=== PATIENT | female | born 1975 | race Caucasian/White ===

== ENCOUNTER 2017-11-08 12:33 | Emergency (ER) | payer SELFPAY ==
[~2017-11-08] VITALS: Ht 165.1 cm; Wt 53.5 kg
[~2017-11-08 12:33] MED LIST: ALBU0.086 NEB; BENZ100 PO; MEDR4PAK3 PO
[2017-11-08 12:48] VITALS: BP 130/82; PULSE 86; RESP 16; TEMP 98.2; O2SAT 96
--- NOTE | 2017-11-08 13:10 | PD ---
HPI Chief Complaint: Injury Time Seen by Provider: 12:54 Travel History International Travel<30 days: No Contact w/Intl Traveler<30days: No Traveled to known affect area: No History of Present Illness HPI 42-year-old female presents emergency department with injury to the dorsal right hand. Patient states she was swinging her hand and hit a doorknob , which she had sudden onset pain, swelling, and bruising to the dorsal hand. This happened 2 days ago. She continues to have swelling, ecchymosis, and pain. Pain is worse with movement and palpation. Pain is about an 8 out of 10. She has been taking ibuprofen and keeping it wrapped with an Gideon bandage. Patient is concerned about possible fracture. She works at the local [employer]. She has no other complaints. She has no known drug allergies. PFSH Past Medical History Asthma: No (BRONCHITIS) Diminished Hearing: No Respiratory: Yes (CHRONIC BRONCHITIS) ?: Not LMP: 2015 : 10 Para: 2 : 7 Social History Alcohol Use: Yes (2-3 BEERS A DAY) Tobacco Use: Yes (1 PACK A DAY FOR 10 YEARS) Substance Use: Yes ("WEED"DAILY) Allergies-Medications (Allergen,Severity, Reaction): Coded Allergies: No Known Allergies (Verified , 05/05/16) Reported Meds & Prescriptions Reported Meds & Active Scripts Active Review of Systems Except as stated in HPI: all other systems reviewed are Neg General / Constitutional: No: Fever Eyes: No: Visual changes HENT: No: Headaches Cardiovascular: No: Chest Pain or Discomfort Respiratory: No: Shortness of Breath Gastrointestinal: No: Abdominal Pain Genitourinary: No: Dysuria Musculoskeletal: Positive: Arthralgias, Limited ROM, Pain, Other (Swelling and ecchymosis per) Skin: No Rash Neurologic: No: Weakness Psychiatric: No: Depression Endocrine: No: Polydipsia Hematologic/Lymphatic: No: Easy Bruising Physical Exam Narrative GENERAL: Patient appears in mild distress per SKIN: Warm and dry. Normal color. Normal turgor. Patient has old ecchymosis to the dorsal right hand extending up to the proximal right wrist. There is a particular swollen area over the dorsal webspace between the second and third metacarpal bones. There is no open wounds or abrasions. There is no sign of cellulitis. HEAD: Atraumatic. Normocephalic. EYES: Pupils equal and round. No scleral icterus. No injection or drainage. ENT: No nasal bleeding or discharge. Mucous membranes pink and moist. Pharynx is clear. Airways patent. NECK: Trachea midline. Supple and nontender CARDIOVASCULAR: Regular rate and rhythm. RESPIRATORY: No accessory muscle use. Clear to auscultation. Breath sounds equal bilaterally. GASTROINTESTINAL: Abdomen soft, non-tender, nondistended. Hepatic and splenic margins not palpable. MUSCULOSKELETAL: Extremities without clubbing, cyanosis, or edema. No obvious deformities. Range of motion of the right hand is limited secondary to pain. Strength is intact but limited secondary to pain. Wrist is normal. NEUROLOGICAL: Awake and alert. No obvious cranial nerve deficits. Motor grossly within normal limits. Five out of 5 muscle strength in the arms and legs. Normal speech. PSYCHIATRIC: Appropriate mood and affect; insight and judgment normal. Data Data Last Documented VS Vital Signs Date Time Temp Pulse Resp B/P (MAP) Pulse Ox O2 Delivery O2 Flow Rate FiO2 11/08/17 12:48 98.2 86 16 130/82 (98) 96 Orders Orders Hand, Complete ([id number]) (11/08/17 12:55) Ice/Cold Pack (11/08/17 12:55) MDM Medical Decision Making Medical Screen Exam Complete: Yes Emergency Medical Condition: Yes Differential Diagnosis Right hand contusion. Ecchymosis. Possible fracture. Narrative Course X-ray of the right hand is obtained. X-ray shows no acute fracture or dislocation. Patient is placed in an Gideon wrap. She is to use heat followed by ice and take ibuprofen 600 mg 4 times daily #40 Work note is given. Patient to follow-up if symptoms do not improve or worsen as needed. Diagnosis Primary Impression: Contusion of right hand, initial encounter Patient Instructions: General Instructions Departure Forms: Work Release Enter return to work date: Nov 09, 2017 Special Instructions: Limited use of the right hand for 1 week. Additional Instructions: X-ray shows no acute fracture or dislocation. Patient is placed in an Gideon wrap. She is to use heat followed by ice and take ibuprofen 600 mg 4 times daily #40 Work note is given. Patient to follow-up if symptoms do not improve or worsen as needed. Med/Other Pt SpecificInfo: Prescription(s) given Disposition: 01 DISCHARGE HOME Condition: Stable Lucy,Pierre F. PA Nov 08, 2017 13:09
--- NOTE | 2017-11-08 13:11 | RADRPT ---
EXAM DATE/TIME: 11/08/2017 13:04 [facility] COMPARISON: No previous studies available for comparison. INDICATIONS : Right hand pain, hit on door handle MEDICAL HISTORY : None. SURGICAL HISTORY : None. ENCOUNTER: Initial ACUITY: 3 days PAIN SCORE: 8/10 LOCATION: Right Hand FINDINGS: Three view examination of the right hand demonstrates no soft tissue swelling, dislocation, or fractu re. The carpal bones appear intact. The interphalangeal and metacarpophalangeal joints are intact. Bony mineralization is normal. CONCLUSION: Unremarkable examination of the right hand. Valeriy Leon MD on November 08, 2017 at 13:08 Board Certified Radiologist. This report was verified electronically.
[2017-11-08] MEDS ORDERED: IBUP-232 PO (13:44)
== END 2017-11-08 14:04 | disposition home or self-care (01) ==
LOC: NEPD 12:33
DX: S60.221A Contusion of right hand, initial encounter (principal); F17.200 Nicotine dependence, unspecified, uncomplicated; W22.8XXA Striking against or struck by other objects, initial encounter; Y92.22 Religious institution as the place of occurrence of the external cause
CPT/HCPCS: 73130; 99283